=== PATIENT | female | born 1995 | race Caucasian/White ===

== ENCOUNTER 2016-09-23 18:42 | Emergency (ER) | payer OTHER ==
[2016-09-23 19:34] LABS: Urine Bacteria Absent (Absent); Urine Bilirubin Negative (Negative); Urine Glucose 1+(50 mg/dL) (Negative); Urine Nitrite Negative (Negative)
[2016-09-23 19:42] LABS: Hematocrit 44 % (35-47); Hemoglobin 14.4 g/dl (12.0-16.0); Mean Corpuscular HGB Conc 33 g/dl (31-36); Mean Corpuscular Hemoglobin 26 pg (27-31); Mean Corpuscular Volume 81 fL (80-97); Mean Platelet Volume 9 um3 (7.4-10.4); Red Blood Count 5.44 10^6/ul (4.0-5.4); Red Cell Distribution Width 15 % (10.5-15); White Blood Count 12.5 10^3/ul (3.5-10.8)
[2016-09-23 19:46] LABS: Benzodiazepine Urine Screen None Detected (None Detect)
[2016-09-23 19:56] LABS: ALT 17 U/L (7-52); AST 16 U/L (13-39); Acetaminophen < 15 mcg/mL; Albumin 4.4 g/dL (3.2-5.2); Alcohol < 10 mg/dL (<10); Alkaline Phosphatase 123 U/L (34-104); Anion Gap 9 mmol/L (2-11); BUN/Creatinine Ratio 10.9 (8-20); Blood Urea Nitrogen 10 mg/dL (6-24); CO2 Carbon Dioxide 24 mmol/L (22-32); Calcium 9.6 mg/dL (8.6-10.3); Chloride 105 mmol/L (101-111); EGFR African American 98.2 (>60); EGFR Non-African American 76.3 (>60); Globulin 3.4 g/dL (2-4); Glucose 88 mg/dL (70-100); Potassium 3.6 mmol/L (3.5-5.0); Salicylate < 2.50 mg/dL (<30); Sodium 138 mmol/L (133-145); Total Protein 7.8 g/dL (6.4-8.9)
[2016-09-23 20:06] LABS: TSH (Thyroid Stimulating Horm) 1.42 mcIU/mL (0.34-5.60)
--- NOTE | 2016-09-23 22:11 | ED ---
Psychiatric Complaint - HPI Summary HPI Summary: Patient presents saying she made statements at dinner "that she wanted to " at her long term. She denies "actually wanting to " but in the past has drawn pictures of how she might if she did commit suicide. She shared this with me in a matter of fact manner and appeared detached from her emotions. She has a counselor she sees on Mondays, but since it was a holiday today, she did not see them today. She denies HI. - History Of Current Complaint Chief Complaint: EDMentalHealth Time Seen by Provider: 09/23/16 18:49 Hx Obtained From: Patient ?: No Timing: Intermittent Episode Lasting Severity Initially: Severe Severity Currently: None Character: Depressed Aggravating Factor(s): Nothing Alleviating Factor(s): Nothing Associated Signs And Symptoms: Positive: Negative Related History: Positive For: Prior Psychiatric Issues Has Suicidal: Reports: Thoughts - Allergies/Home Medications Allergies/Adverse Reactions: Allergies Allergy/AdvReac Type Severity Reaction Status Date / Time No Known Allergies Allergy Verified 09/23/16 18:57 Home Medications: Home Medications Acetaminophen TAB* [Tylenol TAB*] 650 mg PO Q4H PRN 09/23/16 [History Confirmed 09/23/16] Dextroamphetamine ER (NF) 20 mg PO QAM 09/23/16 [History Confirmed 09/23/16] FLUoxetine CAP* [PROzac CAP*] 30 mg PO DAILY 09/23/16 [History Confirmed ] Loratadine [Alavert] 10 mg PO QAM 09/23/16 [History Confirmed 09/23/16] Naproxen TAB* [Naprosyn TAB*] 500 mg PO Q12HR PRN 09/23/16 [History Confirmed ] cloNIDine TAB* [Catapres TAB*] 0.1 mg PO QAM 09/23/16 [History Confirmed ] cloNIDine TAB* [Catapres TAB*] 0.2 mg PO BEDTIME 09/23/16 [History Confirmed ] guanFACINE TAB* [Tenex TAB*] 1 mg PO BID 09/23/16 [History Confirmed 09/23/16] PMH/Surg Hx/FS Hx/Imm Hx Psychiatric History: Reports: Other Psychiatric Issues/Disorders Infectious Disease History: No Infectious Disease History: Denies: Traveled Outside the [place] in Last 30 Days - Family History Known Family History: Positive: None - Social History Occupation: Disabled Lives: Assisted Living Alcohol Use: None Substance Use Type: Reports: None Substance Use Comment - Amount & Last Used: denies Smoking Status (MU): Never Smoked Tobacco Review of Systems Positive: Depressed All Other Systems Reviewed And Are Negative: Yes Physical Exam Triage Information Reviewed: Yes Vital Signs On Initial Exam: Initial Vitals Temp Pulse Resp BP Pulse Ox 98.4 F 82 16 141/94 98 09/23/16 18:52 09/23/16 18:52 09/23/16 18:52 09/23/16 18:52 09/23/16 18:52 Vital Signs Reviewed: Yes Appearance: Positive: Well-Appearing, No Pain Distress, Obese Skin: Positive: Warm, Skin Color Reflects Adequate Perfusion, Dry, Soft Head/Face: Positive: Normal Head/Face Inspection Eyes: Positive: EOMI, ELROY, Conjunctiva Clear ENT: Positive: Hearing grossly normal Respiratory/Lung Sounds: Positive: Clear to Auscultation, Breath Sounds Present Cardiovascular: Positive: RRR Abdomen Description: Positive: Nontender, Soft Bowel Sounds: Positive: Present Musculoskeletal: Positive: Strength/ROM Intact. Negative: Edema Left, Edema Right Neurological: Positive: Sensory/Motor Intact, Alert, Oriented to Person Place, Time, NV Bundle Intact Distally, Normal Gait Psychiatric: Positive: Affect/Mood Appropriate - patient is engaged and converses easily AVPU Assessment: Alert - Ermias Coma Scale Coma Scale Total: 15 Diagnostics - Vital Signs Vital Signs Temp Pulse Resp BP Pulse Ox 09/23/16 20:10 99.5 F 65 16 127/80 98 09/23/16 18:52 98.4 F 82 16 141/94 98 - Laboratory Lab Results: Lab Results 09/23/16 09/23/16 09/23/16 Range/Units 19:00 19:00 19:15 WBC 12.5 H (3.5-10.8) 10^3/ul RBC 5.44 H (4.0-5.4) 10^6/ul Hgb 14.4 (12.0-16.0) g/dl Hct 44 (35-47) % MCV 81 (80-97) fL MCH 26 L (27-31) pg MCHC 33 (31-36) g/dl RDW 15 (10.5-15) % Plt Count 347 (150-450) 10^3/ul MPV 9 (7.4-10.4) um3 Neut % (Auto) 76.1 (38-83) % Lymph % (Auto) 15.7 L (25-47) % [place] % (Auto) 5.4 (1-9) % Eos % (Auto) 1.3 (0-6) % Baso % (Auto) 1.5 (0-2) % Absolute Neuts (auto) 9.5 H (1.5-7.7) 10^3/ul Absolute Lymphs (auto) 2.0 (1.0-4.8) 10^3/ul Absolute Monos (auto) 0.7 (0-0.8) 10^3/ul Absolute Eos (auto) 0.2 (0-0.6) 10^3/ul Absolute Basos (auto) 0.2 (0-0.2) 10^3/ul Absolute Nucleated RBC 0 10^3/ul Nucleated RBC % 0 Sodium (133-145) mmol/L Potassium (3.5-5.0) mmol/L Chloride (101-111) mmol/L Carbon Dioxide (22-32) mmol/L Anion Gap (2-11) mmol/L BUN (6-24) mg/dL Creatinine (0.51-0.95) mg/dL Est GFR ( Amer) (>60) Est GFR (Non-Af Amer) (>60) BUN/Creatinine Ratio (8-20) Glucose (70-100) mg/dL Calcium (8.6-10.3) mg/dL Total Bilirubin (0.2-1.0) mg/dL AST (13-39) U/L ALT (7-52) U/L Alkaline Phosphatase (34-104) U/L Total Protein (6.4-8.9) g/dL Albumin (3.2-5.2) g/dL Globulin (2-4) g/dL Albumin/Globulin Ratio (1-3) TSH (0.34-5.60) mcIU/mL Urine Color Yellow Urine Appearance Cloudy Urine pH 7.0 (5-9) Ur Specific [place] 1.020 (1.010-1.030) Urine Protein Negative (Negative) Urine Ketones Negative (Negative) Urine Blood Negative (Negative) Urine Nitrate Negative (Negative) Urine Bilirubin Negative (Negative) Urine Urobilinogen Negative (Negative) Ur Leukocyte Esterase 2+ H (Negative) Urine WBC (Auto) Trace(0-5/hpf) (Absent) Urine RBC (Auto) Absent (Absent) Ur Squamous Epith Cells Present H (Absent) Urine Bacteria Absent (Absent) Urine Glucose 1+(50 mg/dl) H (Negative) Salicylates (<30) mg/dL Urine Opiates Screen None detected (None Detect) Acetaminophen mcg/mL Ur Barbiturates Screen None detected (None Detect) Ur Phencyclidine Scrn None detected (None Detect) Ur Amphetamines Screen Presumptive positive H (None Detect) U Benzodiazepines Scrn None detected (None Detect) Urine Cocaine Screen None detected (None Detect) U Cannabinoids Screen None detected (None Detect) Serum Alcohol (<10) mg/dL 09/23/16 Range/Units 19:15 WBC (3.5-10.8) 10^3/ul RBC (4.0-5.4) 10^6/ul Hgb (12.0-16.0) g/dl Hct (35-47) % MCV (80-97) fL MCH (27-31) pg MCHC (31-36) g/dl RDW (10.5-15) % Plt Count (150-450) 10^3/ul MPV (7.4-10.4) um3 Neut % (Auto) (38-83) % Lymph % (Auto) (25-47) % [place] % (Auto) (1-9) % Eos % (Auto) (0-6) % Baso % (Auto) (0-2) % Absolute Neuts (auto) (1.5-7.7) 10^3/ul Absolute Lymphs (auto) (1.0-4.8) 10^3/ul Absolute Monos (auto) (0-0.8) 10^3/ul Absolute Eos (auto) (0-0.6) 10^3/ul Absolute Basos (auto) (0-0.2) 10^3/ul Absolute Nucleated RBC 10^3/ul Nucleated RBC % Sodium 138 (133-145) mmol/L Potassium 3.6 (3.5-5.0) mmol/L Chloride 105 (101-111) mmol/L Carbon Dioxide 24 (22-32) mmol/L Anion Gap 9 (2-11) mmol/L BUN 10 (6-24) mg/dL Creatinine 0.92 (0.51-0.95) mg/dL Est GFR ( Amer) 98.2 (>60) Est GFR (Non-Af Amer) 76.3 (>60) BUN/Creatinine Ratio 10.9 (8-20) Glucose 88 (70-100) mg/dL Calcium 9.6 (8.6-10.3) mg/dL Total Bilirubin 0.60 (0.2-1.0) mg/dL AST 16 (13-39) U/L ALT 17 (7-52) U/L Alkaline Phosphatase 123 H (34-104) U/L Total Protein 7.8 (6.4-8.9) g/dL Albumin 4.4 (3.2-5.2) g/dL Globulin 3.4 (2-4) g/dL Albumin/Globulin Ratio 1.3 (1-3) TSH 1.42 (0.34-5.60) mcIU/mL Urine Color Urine Appearance Urine pH (5-9) Ur Specific [place] (1.010-1.030) Urine Protein (Negative) Urine Ketones (Negative) Urine Blood (Negative) Urine Nitrate (Negative) Urine Bilirubin (Negative) Urine Urobilinogen (Negative) Ur Leukocyte Esterase (Negative) Urine WBC (Auto) (Absent) Urine RBC (Auto) (Absent) Ur Squamous Epith Cells (Absent) Urine Bacteria (Absent) Urine Glucose (Negative) Salicylates < 2.50 (<30) mg/dL Urine Opiates Screen (None Detect) Acetaminophen < 15 mcg/mL Ur Barbiturates Screen (None Detect) Ur Phencyclidine Scrn (None Detect) Ur Amphetamines Screen (None Detect) U Benzodiazepines Scrn (None Detect) Urine Cocaine Screen (None Detect) U Cannabinoids Screen (None Detect) Serum Alcohol < 10 (<10) mg/dL Result Diagrams: 09/23/16 19:15 09/23/16 19:15 Lab Statement: Any lab studies that have been ordered have been reviewed, and results considered in the medical decision making process. Course/Dx - Differential Dx/Clinical Impression Differential Diagnosis/HQI/PQRI: Positive: Acute Psychosis, Anxiety, Bipolar Disorder, Depression, Schizophrenia, Suicidal Ideation Provider Diagnosis: Persistent mood [affective] disorder, unspecified - Physician Notifications Patient Is Medically Stable For: Psych Evaluation Discharge - Discharge Plan Condition: Stable Disposition: HOME Patient Education Materials: Depression (ED), Suicide Prevention for Adults (ED ) Referrals: [facility] [Outside] - As Soon As Possible (Go to the walk- in for a possible crisis appointment tomorrow 09/24/2016.) Maximo Remy MD [Primary Care Provider] -
[2016-09-23] MEDS ORDERED: cloNIDine TAB* 0.1 MG PO ONE (22:51)
[2016-09-24 00:14] VITALS: BP 126/76
== END 2016-09-23 23:55 | disposition home or self-care (01) ==
LOC: ED 18:42
DX: F34.9 Persistent mood [affective] disorder, unspecified (principal)
CPT/HCPCS: 36415; 80053; 80307; 80320; 80329; 81003; 81015; 84443; 85025; 87086; 99284; G0480

== ENCOUNTER 2019-07-20 09:14 | Emergency (ER) | payer OTHER ==
--- NOTE | 2019-07-20 10:04 | ED ---
Skin Complaint - HPI Summary HPI Summary: 24-year-old female with no significant past medical history presents to the emergency department today with a chief complaint of an abscess which was diagnosed yesterday at an urgent care on her right buttock. At the urgent care yesterday she was placed on dicloxacillin and was told the abscess is not ready for drainage. Today she complains of increased pain and difficulty sitting down. She denies fever or chills. She denies chest pain, shortness breath, abdominal pain, pain with defecation. Since being seen in the urgent care she is taking her antibiotics as directed. - History of Current Complaint Chief Complaint: EDRashSkinAbscess Stated Complaint: ABSCESS PER PT Hx Obtained From: Patient Onset/Duration: Started Days Ago Skin Exposure Onset/Duration: Days Ago Timing: Constant Onset Severity: Severe Current Severity: Severe Pain Intensity: 10 Pain Scale Used: 0-10 Numeric Skin Location: Discrete - Right buttock Character: Pain, Redness, Painful Aggravating Symptom(s): Touch, Exercise - Allergy/Home Medications Allergies/Adverse Reactions: Allergies Allergy/AdvReac Type Severity Reaction Status Date / Time No Known Allergies Allergy Verified 07/20/19 09:19 PMH/Surg Hx/FS Hx/Imm Hx Psychiatric History: Reports: Other Psychiatric Issues/Disorders Denies: Hx of Violent Episodes Against Others Infectious Disease History: No Infectious Disease History: Denies: Traveled Outside the [place] in Last 30 Days - Family History Known Family History: Positive: None - Social History Alcohol Use: None Substance Use Type: Reports: None Substance Use Comment - Amount & Last Used: denies Smoking Status (MU): Never Smoked Tobacco Review of Systems Constitutional: Negative Cardiovascular: Negative Respiratory: Negative Positive: Other - abscess right buttock Psychological: Normal All Other Systems Reviewed And Are Negative: Yes Physical Exam Triage Information Reviewed: Yes Vital Signs On Initial Exam: Initial Vitals Temp Pulse Resp BP Pulse Ox 97.5 F 95 20 142/97 96 07/20/19 09:17 07/20/19 09:17 07/20/19 09:17 07/20/19 09:17 07/20/19 09:17 Vital Signs Reviewed: Yes Appearance: Positive: Well-Appearing, No Pain Distress, Well-Nourished, Obese Skin: Positive: Warm, Skin Color Reflects Adequate Perfusion, Erythema @ - Right buttock, Other - 8 cm circumferential area of erythema with induration noted to the right buttock consistent with an abscess. 4 cm area of fluctuance in the center of the abscess. No signs of drainage. No involvement of the anus Respiratory/Lung Sounds: Positive: Clear to Auscultation, Breath Sounds Present Cardiovascular: Positive: Normal, RRR, S1, S2 Psychiatric: Positive: Normal AVPU Assessment: Alert Procedures - Sedation Patient Received Moderate/Deep Sedation with Procedure: No - Incision and Drainage incision and drainage of an abscess on the right buttock was performed. Site: right buttock Anesthesia: Local, Lidocaine - 1% without epinephrine Instrument(s): Scalpel - 11 blade Packing: Other - quarter inch iodoform packing Diagnostics - Vital Signs Vital Signs Temp Pulse Resp BP Pulse Ox 07/20/19 09:17 97.5 F 95 20 142/97 96 - Laboratory Lab Statement: Any lab studies that have been ordered have been reviewed, and results considered in the medical decision making process. Course/Dx - Course Course Of Treatment: 24-year-old female was evaluated in the emergency department for an abscess on her right buttock which is seen at urgent care yesterday. The patient was seen and evaluated. No laboratory analysis or imaging was required for this patient. An incision and drainage was performed of the abscess right buttock. The indications, risks, and benefits were explained to the patient and verbal informed consent was obtained. The area was anesthetized using 1% lidocaine without epinephrine buffered with bicarbonate. The area was prepped and draped in sterile fashion. An 11 blade scalpel is used to make a 1.5 cm incision to drain the abscess. Abscess material was then removed using constant pressure. After removal of abscess material quarter inch iodoform packing was placed in the abscess cavity. A dressing using gauze and Tegaderm was placed over the wick and the patient was informed to follow up for packing removal and recheck in 2-3 days at this emergency department or urgent care because she does not have a primary care provider. Minimal blood loss occurred during this procedure. The patient tolerated the procedure well. After incision and drainage pain medication 10 mg hydrocodone with 325 of acetaminophen was sent to her pharmacy to be taken once every 6 hours for 3 days for pain. She was also given an outpatient prescription for Bactrim which will apply improved coverage for suspected MRSA infection to be taken with her dicloxacillin which was prescribed at urgent care yesterday. The patient was informed to return to the emergency department if she develops any new or worsening symptoms and to return to activity as tolerated. - Differential Diagnoses - Skin Complaint Differential Diagnoses: Abscess, Cellulitis, MRSA - Diagnoses Provider Diagnoses: Abscess Discharge ED - Sign-Out/Discharge Documenting (check all that apply): Patient Departure - Discharge Plan Condition: Improved Disposition: HOME Prescriptions: Hydrocodone/Acetaminophen [Hydrocodone-Acetamin 10-325 mg] 1 each PO Q6HR #12 tablet MDD 4 tab Sulfamethox/Trimethoprim DS* [Bactrim DS 800/160 TAB*] 1 tab PO BID #10 tab Patient Education Materials: Abscess (ED) Referrals: No Primary Care Phys,NOPCP [Primary Care Provider] - Additional Instructions: You were seen in the emergency department today for management of an abscess on your right buttock. Your abscess was drained in the emergency department and packing was placed. Follow-up in 2-3 days for wound check and packing removal with your primary care physician, urgent care, or this emergency Department. If the packing falls out on its own it is okay, please continue to go to your wound check. I have sent pain medication to your pharmacy. You may take 10 mg of hydromorphone every 6 hours as needed for pain. I've also sent to new antibiotic here pharmacy which provide better coverage for organisms which are expected to cause this sort of abscess. Please take your Bactrim and finish your dicloxacillin give at urgent care. If your symptoms worsen or you develop any new symptoms such as fever please return to the emergency Department immediately. Return activities as tolerated. - Billing Disposition and Condition Condition: IMPROVED Disposition: Home - Attestation Statements Provider Attestation: I was available for consult. This patient was seen by the KARTHIKEYAN. The patient was not presented to, seen by, or examined by me. -Dennys
[2019-07-20] MEDS ORDERED: Sodium Bicarbonate 8.4% VIAL* 10 ML VIAL IV ONE (10:07)
[2019-07-20] MEDS ORDERED: Lidocaine 2% 10 ML* VIAL INJ ONE (10:09)
[2019-07-20] MEDS ORDERED: Lidocaine 1% MPF ** 5 ML VIAL ONE (10:13)
[2019-07-20 11:17] VITALS: BP 132/97
== END 2019-07-20 11:16 | disposition home or self-care (01) ==
LOC: ED 09:14
DX: L02.31 Cutaneous abscess of buttock (principal)
CPT/HCPCS: 10060; 87070; 87205; 87640; 87641; 99282

== ENCOUNTER 2019-07-21 16:54 | Emergency (ER) | payer OTHER ==
[2019-07-21 17:07] VITALS: BP 119/73
--- NOTE | 2019-07-21 17:50 | ED ---
Laceration/Wound HPI - HPI Summary HPI Summary: 24 year old female presents for wound recheck of abscess. She had the abscess drained yesterday and states the dressing came off and was unsure what to do. area continues to drain. no fevers or spreading redness. states it is feeling better. the packing is still in place. denies any other symptoms. - History of Current Complaint Stated Complaint: ABSESS ON BOTTOM PER PT Time Seen by Provider: 07/21/19 17:35 Pain Intensity: 4 - Allergy/Home Medications Allergies/Adverse Reactions: Allergies Allergy/AdvReac Type Severity Reaction Status Date / Time No Known Allergies Allergy Verified 07/21/19 17:07 PMH/Surg Hx/FS Hx/Imm Hx Endocrine/Hematology History: Denies: Hx Anticoagulant Therapy Respiratory History: Denies: Hx Asthma Psychiatric History: Reports: Other Psychiatric Issues/Disorders Denies: Hx of Violent Episodes Against Others Infectious Disease History: No Infectious Disease History: Denies: Traveled Outside the [place] in Last 30 Days - Family History Known Family History: Positive: None - Social History Alcohol Use: None Substance Use Type: Reports: None Substance Use Comment - Amount & Last Used: denies Smoking Status (MU): Never Smoked Tobacco Review of Systems Negative: Fever Negative: Chest Pain Negative: Shortness Of Breath Positive: Other - abscess on buttock All Other Systems Reviewed And Are Negative: Yes Physical Exam Triage Information Reviewed: Yes Vital Signs On Initial Exam: Initial Vitals Temp Pulse Resp BP Pulse Ox 98.0 F 76 16 119/73 97 07/21/19 17:04 07/21/19 17:04 07/21/19 17:04 07/21/19 17:04 07/21/19 17:04 Vital Signs Reviewed: Yes Appearance: Positive: Well-Appearing Skin: Positive: Warm, Dry, Other - abscess present with packing and minimial erythema that is draining on right buttock Head/Face: Positive: Normal Head/Face Inspection Eyes: Positive: Normal, Conjunctiva Clear ENT: Positive: Pharynx normal Respiratory/Lung Sounds: Positive: Clear to Auscultation, Breath Sounds Present Cardiovascular: Positive: Normal, RRR Musculoskeletal: Positive: Normal Neurological: Positive: Normal Psychiatric: Positive: Normal Procedures - Sedation Patient Received Moderate/Deep Sedation with Procedure: No Diagnostics - Vital Signs Vital Signs Temp Pulse Resp BP Pulse Ox 07/21/19 17:04 98.0 F 76 16 119/73 97 - Laboratory Lab Statement: Any lab studies that have been ordered have been reviewed, and results considered in the medical decision making process. Laceration Repair Course/Dx - Course Course Of Treatment: 24 year old female presents for wound recheck of abscess. She had the abscess drained yesterday and states the dressing came off and was unsure what to do. area continues to drain. no fevers or spreading redness. states it is feeling better. the packing is still in place. denies any other symptoms. on exam has abscess present on right buttock with packing in place that is draining. minimal erythema around such. placed dressing. told to do wound check in two days. patient understand and agrees with plan. - Differential Dx Differental Diagnoses: Abscess, Cellulitis, Other - sepsis - Clinical Impression Provider Diagnoses: Encounter for wound re-check Discharge ED - Sign-Out/Discharge Documenting (check all that apply): Patient Departure - Discharge Plan Condition: Good Disposition: HOME Patient Education Materials: Abscess (ED) Referrals: [facility] [Outside] Additional Instructions: continue antibiotics as prescribed change outer dressing once a day follow up with primary or urgent care in two days for a wound check apply hot compresses to area take tyenlol or ibuprofen every 6 hours as needed for pain Return to ED if develop any new or worsening symptoms - Billing Disposition and Condition Condition: GOOD Disposition: Home - Attestation Statements Provider Attestation: I was available for consult. This patient was seen by the KARTHIKEYAN. The patient was not presented to, seen by, or examined by me. -
== END 2019-07-21 17:52 | disposition home or self-care (01) ==
LOC: ED 16:54
DX: L02.31 Cutaneous abscess of buttock (principal)
CPT/HCPCS: 99281